=== PATIENT | female | born 1955 | race Caucasian/White ===

== ENCOUNTER 2017-04-16 10:09 | Outpatient (CLI) | payer OTHER ==
--- NOTE | 2017-04-19 16:13 | Mammography Report ---
DIGITAL SCREENING MAMMOGRAM: 04/16/2017 CLINICAL INDICATION: A 61-year-old for screening. COMPARISON: 12/2013, 08/2012, 07/2012 TECHNIQUE: Routine CC and MLO projections were obtained of the breasts. FINDINGS: The breasts again demonstrate heterogeneously dense fibroglandular parenchyma bilaterally. Coarse and punctate, typically benign calcifications are present. No suspicious masses, clustered microcalcifications, or regions of architectural distortion are identified. IMPRESSION: BENIGN FINDINGS. RECOMMENDATION: Routine annual screening unless otherwise clinically indicated. BIRADS CATEGORY 2 - BENIGN FINDINGS. STANDARD QUALIFYING STATEMENTS 1. This examination was reviewed with the aid of Computer-Aided Detection (CAD). 2. A negative or benign imaging report should not delay biopsy if clinically suspicious findings are present. Consider surgical consultation if warranted. More than 5% of cancers are not identified by i maging. 3. Dense breasts may obscure an underlying neoplasm. JOB #: [id number] EXT JOB #:[id number]
== END 2017-04-16 10:10 | disposition home or self-care (01) ==
LOC: DI.S 10:09
PROVIDERS: ATTEND Nurse Practitioner Family
DX: Z12.31 Encounter for screening mammogram for malignant neoplasm of breast (principal)
CPT/HCPCS: 77067

== ENCOUNTER 2022-03-17 08:51 | Outpatient (CLI) | payer MEDICARE, OTHER ==
[2022-03-17 14:32] LABS: ALBUMIN 4.2 g/dL (3.2-5.5); ALBUMIN/GLOBULIN RATIO 1.4 (1.0-2.2); ALKALINE PHOSPHATASE 75 IU/L (42-121); ALT ALANINE AMINOTRANSFERASE 27 IU/L (10-60); AST ASPARTATE AMINOTRANSFERASE 28 IU/L (10-42); BILIRUBIN,TOTAL 0.5 mg/dL (0.2-1.0); BUN - BLOOD UREA NITROGEN 12 mg/dL (6-20); CALCIUM 9.2 mg/dL (8.5-10.3); CARBON DIOXIDE - CO2 26 mmol/L (21-32); CHLORIDE 105 mmol/L (101-111); CHOL/HDL RATIO 3.1 (<4.4); CHOLESTEROL 264 mg/dL; CREATININE 0.8 mg/dL (0.4-1.0); GFR - MDRD 72 (>89); GLUCOSE 100 mg/dL (70-100); HDL CHOLESTEROL 84 mg/dL; LDL CHOLESTEROL,CALCULATED 157 mg/dL; LDL/HDL RATIO 1.9 (<4.4); POTASSIUM 3.9 mmol/L (3.5-5.0); SODIUM 139 mmol/L (135-145); TOTAL PROTEIN 7.3 g/dL (6.7-8.2); TRIGLYCERIDES 114 mg/dL; VLDL CHOLESTEROL 23 mg/dL
[2022-03-17 14:43] LABS: ESTIMATED AVERAGE GLUCOSE 111 mg/dL (70-100); HEMOGLOBIN A1c% 5.5 % (4.27-6.07)
[2022-03-17 14:53] LABS: BASOPHILS # (AUTO) 0.1 10^3/uL (0.0-0.1); BASOPHILS % (AUTO) 0.9 %; EOSINOPHILS # (AUTO) 0.2 10^3/uL (0.0-0.7); EOSINOPHILS % (AUTO) 3.1 %; HCT - HEMATOCRIT 43.2 % (37.0-47.0); HGB - HEMOGLOBIN 14.2 g/dL (12.0-16.0); LYMPHOCYTES # (AUTO) 1.9 10^3/uL (1.5-3.5); LYMPHOCYTES % (AUTO) 29.6 %; MEAN CORPUSCULAR HEMOGLOBIN 31.5 pg (27.0-31.0); MEAN CORPUSCULAR HGB CONC 32.9 g/dL (32.0-36.0); MEAN CORPUSCULAR VOLUME 95.8 fL (81.0-99.0); MEAN PLATELET VOLUME 11.1 fL (7.9-10.8); MONOCYTES # (AUTO) 0.5 10^3/uL (0.0-1.0); MONOCYTES % (AUTO) 8.5 %; NEUTROPHILS # (AUTO) 3.7 10^3/uL (1.5-6.6); NEUTROPHILS % (AUTO) 57.7 %; PLT - PLATELET COUNT 242 10^3/uL (130-450); RED BLOOD COUNT 4.51 10^6/uL (4.20-5.40); RED CELL DISTRIBUTION WIDTH 12.9 % (12.0-15.0); WHITE BLOOD COUNT 6.4 x10^3/uL (4.8-10.8)
[2022-03-18 06:11] LABS: HCV AB <0.1 s/co ratio (0.0-0.9)
== END 2022-03-17 08:52 | disposition home or self-care (01) ==
LOC: LAB.S 08:51
PROVIDERS: ATTEND Internal Medicine
DX: E78.5 Hyperlipidemia, unspecified (principal); Z13.6 Encounter for screening for cardiovascular disorders; K21.9 Gastro-esophageal reflux disease without esophagitis; R53.83 Other fatigue; R73.03 Prediabetes; Z11.59 Encounter for screening for other viral diseases
CPT/HCPCS: 36415; 80053; 80061; 82306; 83036; 83721; 84443; 85025; 86803

== ENCOUNTER 2022-04-15 08:19 | Outpatient (CLI) | payer MEDICARE ==
--- NOTE | 2022-04-15 13:46 | Ultrasound Report ---
PROCEDURE: Head or Neck Soft Tissue INDICATIONS: LEFT NECK LUMP TECHNIQUE: Real time scanning was performed of the neck region of interest, with image documentation . COMPARISON: None. FINDINGS: Prominent left submandibular gland identified in area of clinical interest and reported pal pable lump. Left submandibular gland duct is mildly dilated. There is slightly increased vascularity within the left submandibular gland relative to the right. No left submandibular stones are identifie d. IMPRESSION: Prominent left submandibular gland with left duct dilatation. No definite left submandibular gland st one is identified, however the ductal dilatation is concerning for obstructing lesion including a stu leslie stone. Recommend CT scan of the soft tissue neck without contrast for additional evaluation. Increased vascularity involving the left submandibular gland also the right compatible with sialoaden itis. Reviewed by: Carlie Feliciano MD, PhD on 04/15/2022 1:45 PM PDT Approved by: Carlie Feliciano MD, PhD on 04/15/2022 1:45 PM PDT Station ID: [id number]
== END 2022-04-15 08:20 | disposition home or self-care (01) ==
LOC: DI 08:19
PROVIDERS: ATTEND Internal Medicine
DX: K11.1 Hypertrophy of salivary gland (principal)

== ENCOUNTER 2022-04-21 14:03 | Outpatient (CLI) | payer MEDICARE ==
--- NOTE | 2022-04-22 09:04 | Mammography Report ---
BILATERAL DIGITAL SCREENING MAMMOGRAM 3D/2D: 04/21/2022 CLINICAL: Routine screening. Comparison is made to exams dated: 04/16/2017 mammogram - [facility] and 08/22/2012 mammogram - outside facility. There are scattered fibroglandular elements in both breasts. No significant masses, calcifications, or other findings are seen in either breast. There has been no significant interval change. IMPRESSION: NEGATIVE There is no mammographic evidence of malignancy. A 1 year screening mammogram is recommended. Based on the Tyrer Cuzick model (a risk assessment model) the patients lifetime risk is 7.5% and her 10 year risk is 3.6%. According to the ACR, ACS, and NCCN guidelines, an annual breast MRI exam lela g with mammogram is recommended if the patients lifetime risk is 20% or greater. This exam was interpreted at Station ID: [id number]. NOTE: For mammograms, a report in lay terms will be sent to the patient. Approximately 15% of breast malignancies will not be visualized mammographically. In the management of a palpable breast mass, a negative mammogram must not discourage biopsy of a clinically suspicious lesion. Electronically Signed By: Ana [email or web address]:04/21/2022 17:56:16 ACR BI-RADS Category 1: Negative 3341F PARENCHYMAL PATTERN: (A) - The breast(s) demonstrate(s) scattered fibroglandular densities. BI-RADS CATEGORY: (1) - 1 RECOMMENDATION: (ANNUAL) - Recommend routine annual screening mammography. [id number] 1 year screening LATERALITY: (B)
== END 2022-04-21 14:04 | disposition home or self-care (01) ==
LOC: DI.S 14:03
PROVIDERS: ATTEND Internal Medicine
DX: Z12.31 Encounter for screening mammogram for malignant neoplasm of breast (principal)

== ENCOUNTER 2022-07-22 09:42 | Day surgery (SDC) | payer MEDICARE ==
[2022-07-22] MEDS ORDERED: LACTATED RINGERS 1,000 ML IV ONE ×2 (10:08→12:17)
--- NOTE | 2022-07-22 10:35 | ANESTHESIA ---
Pre-Anesthesia VS, & Labs - Diagnosis GERD, screening - Procedure EGD, colonoscopy Vital Signs: Temp Pulse Resp BP Pulse Ox O2 Flow Rate 36.4 C L 67 17 142/78 H 98 0 07/22/22 10:09 07/22/22 10:07/22/22 10:07/22/22 10:09 07/22/22 10:09 07/22/22 10:09 Height: 5 ft 5 in Weight (kg): 78.9 kg Body Mass Index: 28.9 BMI Classification: Overweight - NPO >8 hours Last Fluid Intake: am prep - Is Patient ?: No - Lab Results Lab results reviewed: Yes Home Medications and Allergies Home Medications: Ambulatory Orders Cholecalciferol (Vitamin D3) [Vitamin D3] 1,250 mcg PO DAILY 07/21/22 Lactobacillus Combination No.4 [Probiotic] 1 each PO DAILY 07/21/22 [place]-3/Dha/Epa/Fish Oil [Fish Oil 1,000 mg Softgel] 1 each PO DAILY 07/21/22 Cholecalciferol (Vitamin D3) [Vitamin D3] 1,250 mcg PO DAILY 07/21/22 Lactobacillus Combination No.4 [Probiotic] 1 each PO DAILY 07/21/22 [place]-3/Dha/Epa/Fish Oil [Fish Oil 1,000 mg Softgel] 1 each PO DAILY 07/21/22 Allergies/Adverse Reactions: Allergies Allergy/AdvReac Type Severity Reaction Status Date / Time No Known Drug Allergies Allergy Verified 07/22/22 10:00 Anes History & Medical History - Anesthetic History Anesthesia Complications: reports: No previous complications Family history of Anesthesia Complications: Denies Family history of Malignant Hyperthermia: Denies - Medical History Cardiovascular: reports: None Pulmonary: reports: None Gastrointestinal: reports: GERD Urinary: reports: None Musculoskeletal: reports: None Endocrine/Autoimmune: reports: None History of Cancer?: No - Surgical History Gynecologic: reports: section, Tubal ligation, Hysterectomy Exam General: Alert, Oriented x3, Cooperative Dental: WNL Mouth Opening: Greater than 4 Fingerbreadths Neck Mobility: Normal Mallampati classification: II Thyromental Distance: 4-6 cm Respiratory: Lungs clear, Normal breath sounds, No respiratory distress Cardiovascular: Regular rate (occasional PVC) Neurological: Normal speech Mental/Cognitive Status: Alert/Oriented X3, Normal for patient Cognitive Status: Within normal limits Plan Anesthesia Type: Total IV Consent for Procedure(s) Verified and Reviewed: Yes Code Status: Attempt Resuscitation ASA classification: 2-Mild systemic disease Is this case an emergency?: No
[2022-07-22] MEDS ORDERED: PROPOFOL 500 MG/50 ML 500 MG/50 ML VIAL ONE (11:00)
[2022-07-22 12:55] VITALS: BP 127/80
--- NOTE | 2022-07-22 14:10 | ANESTHESIA POST OP EVALUATION ---
Anesthesia Post Eval - Post Anesthesia Eval Vitals: Last Vital Signs Temp 36.6 C 07/22/22 12:55 Pulse 68 07/22/22 12:55 Resp 16 07/22/22 12:55 BP 127/80 07/22/22 12:55 Pulse Ox 99 07/22/22 12:55 O2 Flow Rate 0 07/22/22 10:09 CV Function Including HR & BP: Stable Pain Control: Satisfactory Nausea & Vomiting: Negative Mental Status: Baseline Respiratory Status: Airway Patent Hydration Status: Satisfactory Anesthesia Complications: None
== END 2022-07-22 09:43 | disposition home or self-care (01) ==
LOC: SDS 09:42
PROVIDERS: ATTEND Surgery
PROC: 0DBH8ZX Excision of Cecum, Via Natural or Artificial Opening Endoscopic, Diagnostic (ICD-10-PCS; 2022-07-22)
PROC: 0DB78ZX Excision of Stomach, Pylorus, Via Natural or Artificial Opening Endoscopic, Diagnostic (ICD-10-PCS; 2022-07-22)
PROC: 0DBK8ZX Excision of Ascending Colon, Via Natural or Artificial Opening Endoscopic, Diagnostic (ICD-10-PCS; principal; 2022-07-22 10:45)
PROC: 0DBL8ZX Excision of Transverse Colon, Via Natural or Artificial Opening Endoscopic, Diagnostic (ICD-10-PCS; 2022-07-22 10:45)
DX: Z12.11 Encounter for screening for malignant neoplasm of colon (principal); D12.2 Benign neoplasm of ascending colon; D12.3 Benign neoplasm of transverse colon; D12.0 Benign neoplasm of cecum; K21.9 Gastro-esophageal reflux disease without esophagitis; K64.8 Other hemorrhoids; K25.9 Gastric ulcer, unspecified as acute or chronic, without hemorrhage or perforation; Z80.0 Family history of malignant neoplasm of digestive organs; Z87.891 Personal history of nicotine dependence
CPT/HCPCS: 43239; 45380; 45385; J7120

== ENCOUNTER 2022-09-02 10:31 | Day surgery (SDC) | payer MEDICARE ==
[2022-09-02] MEDS ORDERED: LACTATED RINGERS 1,000 ML IV ONE ×2 (10:52→11:21)
--- NOTE | 2022-09-02 11:44 | ANESTHESIA ---
Pre-Anesthesia VS, & Labs - Diagnosis gastric ulcers - Procedure EGD Vital Signs: Temp Pulse Resp BP Pulse Ox O2 Flow Rate 36.8 C 66 14 135/85 H 98 0 09/02/22 10:52 09/02/22 10:52 09/02/22 10:52 09/02/22 10:52 09/02/22 10:52 09/02/22 10:52 Height: 5 ft 5 in Weight (kg): 79 kg Body Mass Index: 29.0 BMI Classification: Overweight - NPO Other (black coffee at 5;30) - Is Patient ?: No Home Medications and Allergies Home Medications: Ambulatory Orders Omeprazole Magnesium [Prilosec] 10 mg PO DAILY 09/01/22 Cholecalciferol (Vitamin D3) [Vitamin D3] 1,250 mcg PO DAILY 07/21/22 Lactobacillus Combination No.4 [Probiotic] 1 each PO DAILY 07/21/22 [place]-3/Dha/Epa/Fish Oil [Fish Oil 1,000 mg Softgel] 1 each PO DAILY 07/21/22 Omeprazole Magnesium [Prilosec] 10 mg PO DAILY 09/01/22 Allergies/Adverse Reactions: Allergies Allergy/AdvReac Type Severity Reaction Status Date / Time No Known Drug Allergies Allergy Verified 09/02/22 11:28 Anes History & Medical History - Anesthetic History Anesthesia Complications: reports: No previous complications - Medical History Cardiovascular: reports: None Pulmonary: reports: None Gastrointestinal: reports: GERD Urinary: reports: None Musculoskeletal: reports: None Endocrine/Autoimmune: reports: None History of Cancer?: No - Surgical History General: reports: Colonoscopy, EGD Gynecologic: reports: section, Tubal ligation, Hysterectomy Exam General: Alert, Oriented x3 Dental: WNL Mouth Opening: Greater than 4 Fingerbreadths Neck Mobility: Normal Mallampati classification: II Thyromental Distance: greater than 6 cm Respiratory: Lungs clear Cardiovascular: Regular rate, Normal S1, Normal S2 Mental/Cognitive Status: Alert/Oriented X3 Plan Anesthesia Type: Total IV Consent for Procedure(s) Verified and Reviewed: Yes Code Status: Attempt Resuscitation ASA classification: 2-Mild systemic disease Is this case an emergency?: No
[2022-09-02] MEDS ORDERED: PROPOFOL 200 MG/20 ML VIAL IVP ONE ×2 (11:52→11:55)
[2022-09-02] MEDS ORDERED: LIDOCAINE-PF 2% 10 ML AMP SUBQ ONE (11:56)
--- NOTE | 2022-09-02 12:20 | ANESTHESIA POST OP EVALUATION ---
Anesthesia Post Eval - Post Anesthesia Eval Vitals: Last Vital Signs Temp 36.7 C 09/02/22 12:13 Pulse 81 09/02/22 12:13 Resp 16 09/02/22 12:13 BP 111/69 09/02/22 12:13 Pulse Ox 97 09/02/22 12:13 O2 Flow Rate 0 09/02/22 10:52 CV Function Including HR & BP: Stable Pain Control: Satisfactory Nausea & Vomiting: Negative Mental Status: Baseline Respiratory Status: Airway Patent Hydration Status: Satisfactory Anesthesia Complications: None
[2022-09-02 12:33] VITALS: BP 129/75
== END 2022-09-02 10:32 | disposition home or self-care (01) ==
LOC: SDS 10:31
PROVIDERS: ATTEND Surgery
PROC: 0DB78ZX Excision of Stomach, Pylorus, Via Natural or Artificial Opening Endoscopic, Diagnostic (ICD-10-PCS; principal; 2022-09-02 11:30)
DX: K25.9 Gastric ulcer, unspecified as acute or chronic, without hemorrhage or perforation (principal); K29.50 Unspecified chronic gastritis without bleeding; K44.9 Diaphragmatic hernia without obstruction or gangrene; K21.9 Gastro-esophageal reflux disease without esophagitis; Z87.891 Personal history of nicotine dependence
CPT/HCPCS: 43239; J7120